=== PATIENT | male | born 1960 | race Caucasian/White ===

== ENCOUNTER 2020-03-26 16:38 | Emergency (ER) | payer MEDICAID, SELFPAY ==
[2020-03-26 17:09] VITALS: BP 142/75; PULSE 71; RESP 16; TEMP 36.8; O2SAT 98; BMI 19.5
--- NOTE | 2020-03-26 17:17 | HMH.EDUTC ---
[facility] Disposition Clinical Impression: Cerumen impaction Qualifiers: Laterality: left Qualified Code(s): H61.22 - Impacted cerumen, left ear Disposition: Home, Self-Care Condition on Discharge: Good Instructions: DI for Cerumen Impaction, Cerumen Impaction Additional Instructions: Use the ear drops as directed. Follow up with you primary care doctor. GO TO THE ER FOR ANY WORSENING OR LIFE THREATENING SYMPTOMS Prescriptions: Neomycin/Polymyxin B Sulf/Hc [Nlkujeby-Bgmweqgqw-SK Otic Susp 10mL] 3 drops EAR-BOTH TID 7 Days #1 bottle Transmission Status: Received by [id number] Referrals: PCP,No [Primary Care Provider] - Time of Disposition: 17:20 Medical Decision Making - Medical Records Medical records reviewed: No: I reviewed the patient's medical records. - Ken Inquiry Pt receiving controlled substance: No Vital Signs: 03/26/20 17:09 03/26/20 17:30 Temperature 98.2 F 98.2 F Temperature Source Oral Oral Pulse Rate 70 Pulse Rate [Right] 71 Respiratory Rate 16 16 Blood Pressure 130/70 Blood Pressure [Right Arm] 142/75 H Blood Pressure Mean [Right Arm] 97 Blood Pressure Source Automatic Cuff Blood Pressure Source [Right Arm] Automatic Cuff Blood Pressure Position Sitting Blood Pressure Position [Right Arm] Sitting 02 Sat by Pulse Oximetry 98 Oxygen Delivery Method Room Air Room Air [facility] HPI - General Stated complaint: ear pain Time Seen by Provider: 03/26/20 17:17 - History of Present Illness Provider Complaint: He reports bilateral ear pain and decreased hearing for the past 3 days. He thinks that his ears need to be cleaned out. - Related Data Previous Rx's Medication Instructions Recorded Neomycin/Polymyxin B Sulf/Hc 3 drops EAR-BOTH TID 7 Days #1 03/26/20 [Nalzkxhd-Vjlaytjns-MS Otic Susp bottle 10mL] Allergies Allergy/AdvReac Type Severity Reaction Status Date / Time No Known Allergies Allergy Verified 03/26/20 17:[address] [facility] History - Hepatitis A Screen Attestation statement:: This patient has been screened for Hepatitis A risk factors. I have reviewed the patient's past medical history: Yes ROS Obtained: Yes All systems reviewed & no additional complaints - Constitutional Constitutional: Denies chills, Denies fever(s) - Eyes Eyes: Denies change in vision, Denies eye discharge - ENT Ears, Nose, Mouth, and Throat: Reports as per HPI - Cardiovascular Cardiovascular: Denies chest pain - Respiratory Respiratory: No chest congestion, No cough Physical Exam - General General appearance: alert, in no apparent distress - Head Head exam: atraumatic, normocephalic, normal inspection - Eye Eye exam: Present: normal appearance, PERRL, EOMI - ENT ENT exam: Present: normal exam, normal oropharynx, mucous membranes moist, normal external ear exam - Expanded ENT Exam TM/Canal exam: Left TM: cerumen impaction - Neck Neck exam: Present: normal inspection, full ROM, trachea midline. Absent: meningismus, lymphadenopathy - Chest Chest inspection: Present: normal inspection, symmetric chest wall rise. Absent: tenderness - Respiratory Respiratory exam: Present: normal lung sounds bilaterally. Absent: respiratory distress - Cardiovascular Cardiovascular exam: Present: regular rate, normal rhythm. Absent: JVD - Abdominal Exam Abdominal exam: Present: soft, normal bowel sounds. Absent: distention, tenderness, guarding - Extremities Exam Extremities exam: Present: normal inspection, full ROM, normal capillary refill. Absent: calf tenderness - Back Exam Back exam: Present: normal inspection. Absent: tenderness - Neurological Exam Neurological exam: Present: alert, oriented X3 - Psychiatric Psychiatric exam: Present: normal affect, normal mood - Skin Skin exam: Present: warm, dry, intact, normal color - Lymphatic Lymphatic Findings: no adenopathy Procedures - Ear Wax Removal Left Ear Cerum
[2020-03-26 17:30] VITALS: BP 130/70; PULSE 70; RESP 16; TEMP 36.8; O2SAT 98
== END 2020-03-26 17:31 | disposition home or self-care (01) ==
PROVIDERS: Emergency Provider Nurse Practitioner Family
DX: H66.92 Otitis media, unspecified, left ear (principal); H61.22 Impacted cerumen, left ear
CPT/HCPCS: 99201

== ENCOUNTER 2020-05-28 15:12 | Emergency (ER) | payer MEDICAID, SELFPAY ==
[2020-05-28 15:13] VITALS: BP 184/81; PULSE 81; RESP 20; TEMP 36.8; O2SAT 100; BMI 21.1
--- NOTE | 2020-05-28 16:16 | HMH.EDEAR ---
ED Disposition Clinical Impression: Cerumen impaction Qualifiers: Laterality: left Qualified Code(s): H61.22 - Impacted cerumen, left ear Disposition: Home, Self-Care Condition on Discharge: Good Instructions: DI for Cerumen Impaction Prescriptions: Carbamide Peroxide [Debrox] 2 drp OT TID #15 drops Transmission Status: Pending to [id number] Referrals: PCP,No [Primary Care Provider] - Anastacio Clinton MD [Staff Physician] - - Critical Care Critical Care Time: No Attestation: On 05/28/20, the high probability of a clinically significant, sudden or life threatening deterioration of the following system(s) required my full and direct attention, intervention and personal management. The time I documented below is in addition to time spent performing reported procedures but includes the following listed in this critical care notation. Medical Decision Making - Medical Records Medical records reviewed: Yes: I reviewed the patient's medical records. - Ken Inquiry Pt receiving controlled substance: No Vital Signs: 05/28/20 15:13 Temperature 98.3 F Temperature Source Oral Pulse Rate [Left Radial] 81 Respiratory Rate 20 Blood Pressure [Right Arm] 184/81 H Blood Pressure Mean [Right Arm] 115 Blood Pressure Source [Right Arm] Automatic Cuff Blood Pressure Position [Right Arm] Sitting 02 Sat by Pulse Oximetry 100 Oxygen Delivery Method Room Air Orders (Tests/Meds): ED MEDICATIONS Discontinued Medications Generic Name Dose Route Start Last Admin Trade Name Freq PRN Reason Stop Dose Admin Ibuprofen 800 mg 05/28/20 15:55 05/28/20 16:14 Ibuprofen 400 Mg Tablet PO 05/28/20 15:56 800 mg ONCE ONE Administration Medical Decision Narrative: 60-year-old male presented to the emergency department with left ear pain. Findings are consistent with cerumen impaction. We did remove some of the earwax with a curette. Patient will be provided Debrox solution as well. There is no signs of infection. Patient afebrile. Patient needs follow-up with PCP in 24 hours. Given strict return precautions. Verbalized understanding. Ear HPI - General Chief complaint: Ear Stated complaint: ear pain Time Seen by Provider: 05/28/20 15:20 Mode of Arrival: Wheelchair Limitations: No Limitations Description of Symptoms (Recalled from ER Triage Doc. by RN): c/o left ear pain that started today - History of Present Illness HPI Narrative: This is a 60-year-old male presented to the emergency department with left sided ear pain. The patient states that he has been having some discomfort for the last few days. He got worse today. Feels like his ear is slightly clogged. Feels like noise is a bit muffled in that ear. Denies any trauma. Has not been using any Q-tips. He is not having any mouth pain or neck pain. No fevers or chills. Denies any change in vision. No headache. No focal weakness. No chest pain or shortness of breath. No abdominal pain or vomiting. - Related Data Previous Rx's Medication Instructions Recorded Neomycin/Polymyxin B Sulf/Hc 3 drops EAR-BOTH TID 7 Days #1 03/26/20 [Ysuymwhe-Eomqweull-BF Otic Susp bottle 10mL] Carbamide Peroxide [Debrox] 2 drp OT TID #15 drops 05/28/20 Allergies Allergy/AdvReac Type Severity Reaction Status Date / Time No Known Allergies Allergy Verified 03/26/20 17:19 [facility] History - Hepatitis A Screen Drug use history?: No High risk sexual behaviors?: No History of sexually transmitted infection?: No Currently employed?: No Childcare worker?: No Do you have indoor plumbing?: Yes Do you have electricity?: Yes Attestation statement:: This patient has been screened for Hepatitis A risk factors. I have reviewed the patient's past medical history: Yes ROS Obtained: Yes All systems reviewed & no additional complaints - Constitutional Constitutional: Denies chills, Denies fever(s) - Eyes Eyes: Denies blurry visio
[2020-05-28 16:42] VITALS: BP 165/83; PULSE 74; RESP 20; TEMP 36.8; O2SAT 99
== END 2020-05-28 16:43 | disposition home or self-care (01) ==
PROVIDERS: Emergency Provider Emergency Medicine
DX: H61.22 Impacted cerumen, left ear (principal)
CPT/HCPCS: 99281

== ENCOUNTER 2020-09-09 19:38 | Emergency (ER) | payer MEDICAID, SELFPAY ==
[2020-09-09 19:48] VITALS: BP 126/61; PULSE 97; RESP 14; TEMP 36.4; O2SAT 97; BMI 36.9
--- NOTE | 2020-09-09 19:51 | XR_ITS ---
PROCEDURE INFORMATION: Exam: XR Left Foot Exam date and time: 09/09/2020 7:51 PM Age: 60 years old Clinical indication: Patient HX: Left foot pain after a fall x 1 day TECHNIQUE: Imaging protocol: XR Left foot. Views: 3 or more views. COMPARISON: No relevant prior studies available. FINDINGS: Bones/joints: No acute fracture or dislocation of the foot. Soft tissues: Normal. IMPRESSION: No acute fracture or dislocation of the foot. Please see separate report for details of ankle fractures.
--- NOTE | 2020-09-09 19:52 | XR_ITS ---
PROCEDURE INFORMATION: Exam: XR Left Ankle Exam date and time: 09/09/2020 7:52 PM Age: 60 years old Clinical indication: Ankle; Patient HX: Left foot pain after a fall x 1 day TECHNIQUE: Imaging protocol: XR Left ankle. Views: 3 or more views. COMPARISON: No relevant prior studies available. FINDINGS: Bones/joints: Oblique distal fibular metaphyseal fracture. Medial malleolus avulsion fracture. Mild irregularity of the cortex of the posterior malleolus. Soft tissues: Moderate soft tissue edema around the ankle. IMPRESSION: 1. Oblique distal fibular metaphyseal fracture. 2. Medial malleolus avulsion fracture. 3. Mild irregularity of the cortex of the posterior malleolus. Acute fracture is not excluded.
--- NOTE | 2020-09-09 20:52 | HMH.EDUTC ---
[facility] [place] Disposition Clinical Impression: Left fibular fracture Qualifiers: Encounter type: initial encounter Fibula location: distal Fracture type: closed Fracture morphology: unspecified fracture morphology Qualified Code(s): S82.832A - Other fracture of upper and lower end of left fibula, initial encounter for closed fracture Fall Qualifiers: Encounter type: initial encounter Qualified Code(s): W19.XXXA - Unspecified fall, initial encounter Disposition: Home, Self-Care Condition on Discharge: Good Instructions: Fibula Shaft Fracture Additional Instructions: Rest the extremity, apply ice for 15 minutes as tolerated three or four times per day, Elevate the extremity as much as tolerated. Take ibuprofen for pain. I sent in a prescription to your pharmacy. Follow up with Dr. Gamez (orthopedics). I put in a referral and called him about your x-ray, but you need to call his office and schedule an appointment. Follow up with your regular doctor. GO TO THE ER FOR ANY WORSENING SYMPTOMS Prescriptions: Ibuprofen [Ibuprofen 800mg Tablet] 800 mg PO Q8HP PRN #30 tab PRN Reason: Moderate Pain Transmission Status: Received by [id number] Referrals: Ranjit Duncan APRN [Primary Care Provider] - Wilbert Gamez MD [Staff Physician] - Time of Disposition: 20:55 Medical Decision Making - Medical Records Medical records reviewed: No: I reviewed the patient's medical records. - Ken Inquiry Pt receiving controlled substance: No Vital Signs: 09/09/20 19:48 09/09/20 21:11 Temperature 97.6 F 98 F Temperature Source Tympanic Pulse Rate 92 H Pulse Rate [Right] 97 H Respiratory Rate 14 18 Blood Pressure 118/69 Blood Pressure [Right Arm] 126/61 Blood Pressure Mean [Right Arm] 82 Blood Pressure Source [Right Arm] Automatic Cuff Blood Pressure Position [Right Arm] Sitting 02 Sat by Pulse Oximetry 97 Orders (Tests/Meds): ED MEDICATIONS Discontinued Medications Generic Name Dose Route Start Last Admin Trade Name Freq PRN Reason Stop Dose Admin Ketorolac Tromethamine 60 mg 09/09/20 21:02 09/09/20 21:03 Ketorolac 60mg/2ml Vial IM 09/09/20 21:03 60 mg ONCE ONE Administration [facility] [place] HPI - General Stated complaint: AO fall 09/08 injured L foot Time Seen by Provider: 09/09/20 20:25 Mode of Arrival: Wheelchair Source of Information: Patient Limitations: No Limitations Description of Symptoms (Recalled from Triage Doc. by RN): pt states he fell while in the bathroom last night. he is now having swelling, bruising and pain in his L foot and ankle. 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 HEENT Symptoms (Recalled from RN notes): No Resp Symptoms (Recalled from RN notes): No Skin Symptoms (Recalled from RN notes): No MS Symptoms (Recalled from RN notes): Yes (L ankle/foot pain, swelling and bruised) Functional Status (Recalled from RN notes): na - History of Present Illness Provider Complaint: He states that he fell in his bathroom yesterday. He twisted his left foot and ankle during the fall. He c/o left ankle pain and swelling since then. - Related Data Home Medications Medication Instructions Recorded Confirmed ergocalciferol (vitamin D2) 1,250 1,250 mcg PO WEEKLY 09/10/20 09/10/20 mcg (50,000 unit) capsule Previous Rx's Medication Instructions Recorded Ibuprofen [Ibuprofen 800mg 800 mg PO Q8HP PRN #30 tab 09/09/20 Tablet] aripiprazole 5 mg tablet 5 mg PO DAILY #30 tab 09/10/20 buspirone 15 mg tablet 15 mg PO BID #30 tab 09/10/20 folic acid 1 mg tablet 1 mg PO DAILY #30 tab 09/10/20 pantoprazole 40 mg tablet,delayed 40 mg PO DAILY #30 tab 09/10/20 release paroxetine HCl 10 mg tablet 10 mg PO DAILY #30 tab 09/10/20 risperidone 0.5 mg tablet 0.5 mg PO BID #30 tab 09/10/20 sucralfate 1 gram tablet 1 g PO BID #30 tab 09/10/20 Allergies Allergy/AdvReac Type Severity Reaction Status Date
[2020-09-09 21:11] VITALS: BP 118/69; PULSE 92; RESP 18; TEMP 36.6
== END 2020-09-09 21:13 | disposition home or self-care (01) ==
PROVIDERS: Emergency Provider Nurse Practitioner Family; PCP Nurse Practitioner Family
DX: S82.832A Other fracture of upper and lower end of left fibula, initial encounter for closed fracture (principal); X50.1XXA Overexertion from prolonged static or awkward postures, initial encounter; Y92.012 Bathroom of single-family (private) house as the place of occurrence of the external cause
CPT/HCPCS: 29515; 73610; 73630; 96372; 99202; G0463

== ENCOUNTER → 2020-09-12 14:38 | Outpatient (CLI) | payer MEDICAID, SELFPAY ==
--- NOTE | 2020-09-12 14:43 | XR_ITS ---
PROCEDURE: XR ANKLE LT MIN 3V CLINICAL INDICATION: cast applied; left ankle fx COMPARISON: CR XR ANKLE LT MIN 3V from 09/09/2020 FINDINGS: There has been interval cast placement. There is a minimally displaced oblique distal fibular fracture with minimal lateral and dorsal displacement of the distal fracture fragment with good alignment. Tiny avulsion fracture of the medial malleolus once again noted. There may be a nondisplaced longitudinal fracture of the posterior distal tibia. The joint spaces are well-preserved. No significant degenerative/arthritic changes. No erosive changes evident. Other findings:None. IMPRESSION: Status post cast placement stabilizing the distal fibular, medial malleolar, and possible posterior distal tibial fracture Dictated by: Logan Ridley MD 09/12/2020 15:46 Logan Ridley MD in [place] 09/12/2020 15:46
== END ==
PROVIDERS: PCP Emergency Medicine; Visit Provider Orthopaedic Surgery
DX: S82.892A Other fracture of left lower leg, initial encounter for closed fracture (principal)
CPT/HCPCS: 73610

== ENCOUNTER → 2020-09-18 11:02 | Outpatient (CLI) | payer MEDICAID, SELFPAY ==
--- NOTE | 2020-09-18 11:06 | XR_ITS ---
PROCEDURE: XR ANKLE LT MIN 3V CLINICAL INDICATION: left ankle/ fib fx COMPARISON: CR XR ANKLE LT MIN 3V from 09/09/2020 CR XR ANKLE LT MIN 3V from 09/12/2020 FINDINGS: The presence of plastic cast limits evaluation.Mildly displaced oblique fracture of the distal fibular meta diaphysis is noted. Fracture of the tip of the medial malleolus is again noted. No other acute fractures or dislocations. The ankle mortise is congruent and the lateral clear space is preserved. No significant soft tissue abnormality. No interval change compared to prior study. IMPRESSION: No interval change compared to prior study. Dictated by: Debbie Gamez 09/18/2020 13:47 Debbie Gamez in [facility] 09/18/2020 13:47
== END ==
PROVIDERS: PCP Emergency Medicine; Visit Provider Orthopaedic Surgery
DX: S82.402A Unspecified fracture of shaft of left fibula, initial encounter for closed fracture (principal)
CPT/HCPCS: 73610

== ENCOUNTER → 2020-12-12 13:56 | Outpatient (CLI) | payer MEDICAID, SELFPAY ==
[2020-12-12 14:21] LABS: Barbiturates Screen,Urine Negative ng/ml (<200)
[2020-12-12 14:22] LABS: Benzodiazepines Screen,Urine Negative ng/ml (<200)
[2020-12-12 14:23] LABS: Amphetamine/Metha Screen,Urine Negative ng/ml (<1000); Methadone Screen,Urine Negative ng/ml (<300)
[2020-12-12 14:24] LABS: Cannabinoid Screen,Urine Positive ng/ml (<50)
[2020-12-12 14:28] LABS: Opiate Screen,Urine Negative ng/ml (<300)
[2020-12-12 14:29] LABS: Phencyclidine Screen,Urine Negative ng/ml (<25)
[2020-12-12 14:44] LABS: Cocaine Screen,Urine Negative ng/ml (<300)
== END ==
PROVIDERS: Visit Provider Nurse Practitioner Family
DX: Z79.899 Other long term (current) drug therapy (principal)
CPT/HCPCS: 80305

== ENCOUNTER → 2021-10-02 14:31 | Outpatient (CLI) | payer MEDICAID, SELFPAY ==
--- NOTE | 2021-10-02 14:38 | XR_ITS ---
FINAL REPORT CLINICAL HISTORY: R Hip pain FINDINGS: An AP view of the pelvis and a frog leg views of the right hip were obtained. There is no prior exam for comparison. There is no acute fracture or dislocation. There is mild degenerative joint disease. Remaining osseous pelvis is within normal limits. Soft tissues are within normal limits. IMPRESSION: No acute osseous abnormality of the right hip. If pain persists, consider MR. Reviewed, Interpreted and Dictated by Taylor Camargo MD Transcribed by Vito Hopper Authenticated by Taylor Camargo MD on 10/02/2021 03:56:32 PM [facility]
== END ==
PROVIDERS: PCP Nurse Practitioner Family; Visit Provider Nurse Practitioner Family
DX: M25.551 Pain in right hip (principal)
CPT/HCPCS: 73502

== ENCOUNTER → 2023-01-14 12:00 | Outpatient (CLI) | payer MEDICAID, SELFPAY ==
[2023-01-14 18:41] LABS: Basophils % 0.6 % (0.1-2.0); Eosinophils % 0.5 % (0.1-12.0); Hemoglobin 16.1 g/dL (14.1-18.0); Lymphocytes # 2.1 K/mm3 (0.7-4.5); Lymphocytes % 26.9 % (10-50); Mean Corpuscular HGB Conc 32.2 g/dL (31.8-35.4); Mean Corpuscular Volume 93.1 fl (80-94); Mean Platelet Volume 11.1 fl (7.4-10.4); Monocytes # 0.6 K/mm3 (0.1-1.0); Monocytes % 7.4 % (1.7-9.3); Neutrophils # 4.9 K/mm3 (1.8-7.8); Neutrophils % 64.7 % (37.0-80.0); Platelet Count 207 K/mm3 (142-424); Red Blood Count 5.37 M/mm3 (4.60-6.20); White Blood Count 7.6 K/mm3 (4.8-10.8)
[2023-01-14 18:57] LABS: Alanine Aminotransferase 20 U/L (12-78); Albumin Level 4.6 g/dl (3.5-5.0); Albumin/Globulin Ratio 1.5 (1.1-1.8); Alkaline Phosphatase 73 U/L (38-126); Anion Gap 14.3 mEq/L (5-15); Aspartate Amino Transferase 25 U/L (17-59); Bilirubin,Total 0.3 mg/dl (0.2-1.3); Blood Urea Nitrogen 19 mg/dl (9-20); Calcium 9.4 mg/dl (8.4-10.2); Carbon Dioxide 23 mmol/L (22.0-30.0); Chloride 108 mmol/L (98-107); Chol/HDL Ratio 4.6 (1-3.5); Cholesterol 217 mg/dl (140-200); Estimated Glomerular Filt Rate 61 ml/min (>60); GFR (African American) 74 ML/MIN (>60); Globulin 3.1 g/dL (1.3-3.2); Glucose 64 mg/dl (74-100); HDL Cholesterol 47 mg/dl (40-60); Potassium 4.3 mmoL/L (3.5-5.1); Sodium 141 mmol/L (136-145); Total Protein,Serum 7.7 g/dl (6.3-8.2); Triglycerides 227 mg/dl (30-150); VLDL Cholesterol 45 mg/dL (0-40)
[2023-01-14 19:09] LABS: Direct LDL Cholesterol 122.87 mg/dL (100-129)
[2023-01-14 19:12] LABS: Amphetamine/Metha Screen,Urine Negative ng/ml (<1000); Benzodiazepines Screen,Urine Negative ng/ml (<200)
[2023-01-14 19:13] LABS: Barbiturates Screen,Urine Negative ng/ml (<200)
[2023-01-14 19:14] LABS: Cannabinoid Screen,Urine Positive ng/ml (<50); Methadone Screen,Urine Negative ng/ml (<300)
[2023-01-14 19:15] LABS: 25-OH Vitamin D, Total 36.7 ng/mL (30-100); Cocaine Screen,Urine Negative ng/ml (<300); Opiate Screen,Urine Negative ng/ml (<300)
[2023-01-14 19:16] LABS: Phencyclidine Screen,Urine Negative ng/ml (<25)
[2023-01-14 19:28] LABS: Prostate Specific Ag Screen 1.8 ng/ml (0.0-4.0); Thyroid Stimulating Hormone 3.79 uIU/mL (0.465-4.68)
== END ==
PROVIDERS: PCP Nurse Practitioner Family; Visit Provider Nurse Practitioner Family
DX: G62.9 Polyneuropathy, unspecified (principal); F41.9 Anxiety disorder, unspecified; E66.9 Obesity, unspecified; Z68.30 Body mass index [BMI] 30.0-30.9, adult; Z79.899 Other long term (current) drug therapy; Z12.5 Encounter for screening for malignant neoplasm of prostate
CPT/HCPCS: 80053; 80061; 80305; 82306; 84443; 85025; G0103

== ENCOUNTER 2023-08-13 15:01 | Emergency (ER) | payer MEDICAID, SELFPAY ==
[2023-08-13 15:04] VITALS: BP 139/83; PULSE 105; RESP 15; TEMP 36.9; O2SAT 96; BMI 26.4
--- NOTE | 2023-08-13 16:03 | CT_ITS ---
PROCEDURE INFORMATION: Exam: CT Lumbar Spine Without Contrast Exam date and time: 08/13/2023 4:18 PM Age: 63 years old Clinical indication: Injury or trauma; Fall; Blunt trauma (contusions or hematomas); Additional info: Fall, midline lumbar spine pain with amb TECHNIQUE: Imaging protocol: Computed tomography of the lumbar spine without contrast. Radiation optimization: All CT scans at this facility use at least one of these dose optimization techniques: automated exposure control; mA and/or kV adjustment per patient size (includes targeted exams where dose is matched to clinical indication); or iterative reconstruction. COMPARISON: CR XR HIP RT 2-3V W/PELVIS 10/02/2021 2:48 PM FINDINGS: Bones/joints: There is retrolisthesis of L4 on L5 and L5 on S1.No evidence of acute spondylolisthesis or vertebral subluxation. Vertebral body heights are generally preserved, but some endplate sclerosis and anterior osteophytes are noted at multiple levels. Narrowing of multiple intervertebral disc spaces observed, indicative of degenerative disc disease. Hypertrophic changes are seen in the facet joints, consistent with osteoarthritis. No fractures or bony lesions identified. No abnormalities seen in adjacent osseous structures. Soft tissues: Unremarkable. Other findings: No obvious abnormalities seen in the prevertebral and paravertebral soft tissues. IMPRESSION: 1. Degenerative changes without acute abnormality detected. 2. If clinical concern persists, MRI would be suggested.
--- NOTE | 2023-08-13 16:03 | XR_ITS ---
PROCEDURE INFORMATION: Exam: XR Left Clavicle, Complete Exam date and time: 08/13/2023 4:01 PM Age: 63 years old Clinical indication: Pain; Shoulder; Left; Additional info: Pain after fall TECHNIQUE: Imaging protocol: Radiologic exam of the left clavicle. Complete exam. Views: Any number of views. COMPARISON: No relevant prior studies available. FINDINGS: Bones/joints: The osseous structures are intact, with no signs of acute fracture, dislocation, or malalignment. Age-related degenerative changes are observed. There is no evidence of abnormal bone density or destructive lesions. Soft tissues: The soft tissues appear within normal limits. IMPRESSION: At the time of imaging, the study shows no acute osseous abnormalities but does reveal signs of age-related degenerative changes.
--- NOTE | 2023-08-13 16:03 | [facility].EDGENADL ---
Discharge Plan Disposition Patient Disposition: Home, Self-Care Prescriptions Prescriptions: New methocarbamol 750 mg tablet 750 mg PO TID 5 Days Qty: 15 0RF No Action naproxen 500 mg tablet 500 mg PO BID Qty: 30 0RF pantoprazole 40 mg tablet,delayed release (DR/EC) See Rx Instructions .ROUTE .COMPLEX Qty: 90 1RF Dose Instruction: Take 1 tablet by mouth once daily Rx Instructions: Take 1 tablet by mouth once daily gabapentin 600 mg tablet 600 mg PO TID Qty: 90 2RF ergocalciferol (vitamin D2) 1,250 mcg (50,000 unit) capsule See Rx Instructions .ROUTE .COMPLEX Qty: 7 2RF Dose Instruction: Take 1 capsule by mouth once a week Rx Instructions: Take 1 capsule by mouth once a week aripiprazole 5 mg tablet See Rx Instructions .ROUTE .COMPLEX Qty: 90 2RF Dose Instruction: Take 1 tablet by mouth once daily Rx Instructions: Take 1 tablet by mouth once daily buspirone 15 mg tablet See Rx Instructions .ROUTE .COMPLEX Qty: 90 2RF Dose Instruction: Take 1 tablet by mouth twice daily Rx Instructions: Take 1 tablet by mouth twice daily paroxetine HCl 10 mg tablet 10 mg PO DAILY Qty: 90 2RF folic acid 1 mg tablet 1 mg PO DAILY Qty: 90 2RF Referrals Follow up/Referrals: Ranjit Duncan APRN [Primary Care Provider] - See instructions Activity Restrictions/Add. Instructions Additional Instructions/Restrictions: Call your family doctor to establish care for this visit to the emergency department and schedule follow-up within 48 hours to ensure improvement. If you have any worsening of your condition or any other concerning signs or symptoms, return to the emergency department or your primary care doctor for further evaluation. Clinical Impressions Clinical Impression: Lumbar spine pain, Fall, Pain of left clavicle Discharge ED Provider: Charles Jose [facility] Adult [facility] General Chief complaint: PAIN Stated complaint: AO 08/08/23 1730 fell injury back and ribs Time Seen by Provider: 08/13/23 15:24 Mode of Arrival: Wheelchair Source of Information: Patient Limitations: No Limitations Description of Symptoms (Recalled from ER Triage Doc. by RN): pt reports to ED with c/o left sided rib pain. pt reports pain 10/. pt reports he had a fall recently and hit the edge of his bathtub. pt reports he did not hit his head and does not take blood thinners. History of Present Illness HPI narrative: 3-year-old male history of hypertension, hyperlipidemia, COPD still smoking, psychiatric comorbidities presenting with left clavicle and lumbar spine pain. Patient states that he fell in the bathtub 2 or 3 days prior to this visit. Has not taken anything for the pain. States that his lower back hurts significantly especially when walking. Has not had any troubles urinating or having bowel movements, no perineal anesthesia, lower extremity weakness, or any other concerns. Left clavicle hurts from fall as well. He states that he did not hit his head, did not lose consciousness. No blood thinners Please note that above description of symptoms, in this electronic medical record under categorization of recalled from ER triage doctor by RN are reflective of an initial nursing assessment, however, is not reflective of my full history and physical exam that was personally taken and clarified. Consequentially, this preceding description of symptoms, which may include the patient's categorized chief complaint in the EMR, do not reflect my personal clinical impression, and the ultimate description of history of present illness and patient stated complaints should be deferred to this section of the note. Unless stated otherwise or congruent with this section of the note, additional signs, symptoms, or incongruence should be interpreted as inaccurate with my clinical impression. Related Data Previous Rx's Medication Instructions Recorded naproxen 500 mg tablet 500 mg PO BID #30 tabs 11/26/21 ergocalciferol (vitamin D2) 1,250 See Rx Instructions .Route 09/24/22 mcg (50,000 unit) capsule .COMPLEX #7 caps pantoprazole 40 mg tablet,delayed See Rx Instructions .Route 01/14/23 release .COMPLEX #90 tabs aripiprazole 5 mg tablet See Rx Instructions .Route 04/28/23 .COMPLEX #90 tabs buspirone 15 mg tablet See Rx Instructions .Route 06/02/23 .COMPLEX #90 tabs paroxetine HCl 10 mg tablet 10 mg PO DAILY #90 tabs 06/07/23 gabapentin 600 mg tablet 600 mg PO TID #90 tabs 06/23/23 folic acid 1 mg tablet 1 mg PO DAILY #90 tabs 07/19/23 methocarbamol 750 mg tablet 750 mg PO TID 5 days #15 tabs 08/13/23 Allergies Allergy/AdvReac Type Severity Reaction Status Date / Time No Known Allergies Allergy Verified 08/13/23 15:18 [facility] Disclaimer: The information contained in this section may have been updated after the patient was seen, as this information can be updated by other users. Social History Smoking Status: Current every day smoker tobacco type: cigars alcohol intake: never current occupational status: unemployed Travel in the last 8 weeks: None ROS Obtained: Yes All systems reviewed & no additional complaints except as documented Physical Exam General General appearance: alert, in no apparent distress and other (Chronically ill-appearing, no rest) Head Head exam: atraumatic and normocephalic Eye Eye exam: Present normal appearance, PERRL and EOMI ENT ENT exam: Present mucous membranes moist Neck Neck exam: Present normal inspection, full ROM and trachea midline Chest Chest inspection: Present tenderness (About left clavicle, no outward signs of injury or deformity) Respiratory Respiratory exam: Present normal lung sounds bilaterally; Absent respiratory distress, wheezes, stridor, accessory muscle use or prolonged expiratory phase Cardiovascular Cardiovascular exam: Present regular rate and normal rhythm Abdominal Exam Abdominal exam: Present soft; Absent distention, tenderness, guarding, rebound or rigidity Extremities Exam Extremities exam: Absent edema Back Exam Back exam: Present tenderness and vertebral tenderness (Tenderness about lower lumbar vertebra, no evidence of bruising, outward signs of injury or deformity, step-offs, or swelling.) Neurological Exam Neurological exam: Present alert, oriented X3, CN II-XII intact and normal gait; Absent motor sensory deficit Skin Skin exam: Present warm and dry; Absent diaphoresis or erythema Medical Decision Making Medical Records Medical records reviewed: Yes I reviewed the patient's medical records. Ken Inquiry Pt receiving controlled substance: No Ken was queried for this patient: No Vital Signs: 08/13/23 15:04 Temperature 98.5 F Temperature Source Oral Pulse Rate [Left Radial] 105 H Respiratory Rate 15 Blood Pressure [Right Arm] 139/83 Blood Pressure Mean [Right Arm] 101 02 Sat by Pulse Oximetry 96 Oxygen Delivery Method Room Air Orders (Tests/Meds): ED MEDICATIONS Discontinued Medications Generic Name Dose Route Start Last Admin Trade Name Freq PRN Reason Stop Dose Admin Acetaminophen 1,000 mg 08/13/23 16:03 08/13/23 16:34 Acetaminophen 500mg Tab PO 08/13/23 16:04 1,000 mg ONCE ONE Administration Ibuprofen 600 mg 08/13/23 16:03 08/13/23 16:34 Ibuprofen 600 Mg Tablet PO 08/13/23 16:04 600 mg ONCE ONE Administration ORDERS Category Date Time Status CT lumbar spine wo con Stat Cat Scan 08/13/23 16:03 Completed Clavicle XR left [XR clavicle LT] Stat Exams 08/13/23 16:03 Completed Medical Decision Narrative: 63-year-old male history of hypertension, hyperlipidemia, COPD still smoking, psychiatric comorbidities presenting with left clavicle and lumbar spine pain. Patient states that he fell in the bathtub 2 or 3 days prior to this visit. Has not taken anything for the pain. States that his lower back hurts significantly especially when walking. Has not had any troubles urinating or having bowel movements, no perineal anesthesia, lower extremity weakness, or any other concerns. Left clavicle hurts from fall as well. He states that he did not hit his head, did not lose consciousness. No blood thinners. History was obtained via conversation with patient. On arrival, patient hemodynamically stable, alert, oriented x4, appropriate, GCS 15, moving all extremities spontaneously, pupils equal and reactive to light. Full physical exam performed and significant for chronically ill-appearing male no acute distress. Bilateral breath sounds. Differential includes differential includes lumbar spine fracture, spinal canal stenosis, spinal cord impingement, epidural hematoma, sprain, strain, among others. Patient was given Tylenol Motrin p.o. for symptomatic management and correction of underlying abnormalities. Workup independently interpreted and significant for normal lumbar spine CT. No evidence of spinal stenosis. See radiology read for full review of final results. Given patient presentation, workup, history, this most likely represents lumbosacral strain in the setting of fall. Because patient at baseline without signs or symptoms of clinical decompensation, deemed appropriate for discharge. Results were relayed to patient who voiced understanding and were agreeable to outpatient management and follow up. I discussed my clinical impression with patient and answered all questions. At this time, the evidence for any other entities in the differential is insufficient to warrant any further testing or ED observation. This was explained as well. Advisory was given that persistent or worsening symptoms require further evaluation. I confirmed the understanding of this discussion. Critical Care Critical Care Time Critical Care Time: No
[2023-08-13] MEDS: ACETAMINOPHEN 500MG TAB 1000 MG PO (16:34)
[2023-08-13] MEDS: IBUPROFEN 600 MG TABLET PO (16:34)
[2023-08-13 17:06] VITALS: BP 141/85; PULSE 98; RESP 16; TEMP 36.8; O2SAT 92
== END 2023-08-13 17:07 | disposition home or self-care (01) ==
PROVIDERS: Emergency Provider Emergency Medicine; PCP Nurse Practitioner Family
DX: M25.512 Pain in left shoulder (principal); M54.59 Other low back pain; F17.210 Nicotine dependence, cigarettes, uncomplicated; J44.9 Chronic obstructive pulmonary disease, unspecified; I10 Essential (primary) hypertension; E78.5 Hyperlipidemia, unspecified; W18.2XXA Fall in (into) shower or empty bathtub, initial encounter
CPT/HCPCS: 72131; 73000; 99284

== ENCOUNTER 2024-02-08 23:20 | Outpatient (CLI) | payer MEDICAID, SELFPAY ==
[2024-02-08 23:31] LABS: Basophils % 0.6 % (0.1-2.0); Eosinophils # 0.1 K/mm3 (0.0-0.4); Eosinophils % 0.7 % (0.1-12.0); Hematocrit 47.3 % (42.0-52.0); Hemoglobin 15.3 g/dL (14.1-18.0); Lymphocytes # 1.9 K/mm3 (0.7-4.5); Lymphocytes % 27.7 % (10-50); Mean Corpuscular HGB Conc 32.3 g/dL (31.8-35.4); Mean Corpuscular Hemoglobin 31.2 pg (27.0-31.2); Mean Corpuscular Volume 96.7 fl (80-94); Mean Platelet Volume 11.3 fl (7.4-10.4); Monocytes # 0.5 K/mm3 (0.1-1.0); Monocytes % 6.7 % (1.7-9.3); Neutrophils # 4.3 K/mm3 (1.8-7.8); Neutrophils % 64.2 % (37.0-80.0); Platelet Count 224 K/mm3 (142-424); Red Blood Count 4.89 M/mm3 (4.60-6.20); Red Cell Distribution Width 14.2 % (11.5-17.5); White Blood Count 6.7 K/mm3 (4.8-10.8)
[2024-02-09 01:26] LABS: Blood Urea Nitrogen 20 mg/dl (9-20); Carbon Dioxide 27 mmol/L (22.0-30.0); Chloride 105 mmol/L (98-107); Estimated Glomerular Filt Rate 61 ml/min (>60); GFR (African American) 74 ML/MIN (>60); Potassium 4.3 mmoL/L (3.5-5.1)
[2024-02-09 01:27] LABS: Aspartate Amino Transferase 27 U/L (17-59); Bilirubin,Total 0.5 mg/dl (0.2-1.3); Calcium 9.4 mg/dl (8.4-10.2); Glucose 97 mg/dl (74-100)
[2024-02-09 01:28] LABS: Alanine Aminotransferase 34 U/L (12-78); Albumin Level 4.4 g/dl (3.5-5.0); Albumin/Globulin Ratio 1.7 (1.1-1.8); Globulin 2.6 g/dL (1.3-3.2); Triglycerides 161 mg/dl (30-150); VLDL Cholesterol 32 mg/dL (0-40)
[2024-02-09 01:29] LABS: Alkaline Phosphatase 71 U/L (38-126); Cholesterol 205 mg/dl (140-200); Direct LDL Cholesterol 130.49 mg/dL (100-129); HDL Cholesterol 41 mg/dl (40-60)
[2024-02-09 01:33] LABS: 25-OH Vitamin D, Total 22.6 ng/mL (30-100)
[2024-02-09 01:34] LABS: Anion Gap 10.3 mEq/L (5-15); Sodium 138 mmol/L (136-145)
[2024-02-09 01:43] LABS: Thyroid Stimulating Hormone 1.92 uIU/mL (0.465-4.68)
== END 2024-02-08 23:59 | disposition home or self-care (01) ==
LOC: LAB.DROPOF 23:22
PROVIDERS: PCP Nurse Practitioner Family; Visit Provider Nurse Practitioner Family
DX: G62.9 Polyneuropathy, unspecified (principal)
CPT/HCPCS: 80050; 80053; 80061; 82306; 84443; 85025